=== PATIENT | female | born 1960 | race African-American/Black ===

== ENCOUNTER 2019-07-02 14:56 | Emergency (ER) | payer MEDICAID, OTHER ==
[~2019-07-02] VITALS: Ht 160 cm; Wt 102.1 kg
[2019-07-02 17:11] VITALS: BP 158/70
== END 2019-07-02 18:26 | disposition home or self-care (01) ==
LOC: ER 14:56
DX: J06.9 Acute upper respiratory infection, unspecified (principal); E11.9 Type 2 diabetes mellitus without complications